=== PATIENT | female | born 1995 | race Caucasian/White ===

== ENCOUNTER 2023-01-16 09:55 | Emergency (ER) | payer BC ==
[~2023-01-16] VITALS: Ht 162.6 cm; Wt 104.3 kg
[2023-01-16 10:00] VITALS: BP 143/82
--- NOTE | 2023-01-16 10:10 | NUR ---
STATES DEVELOPED RASH AFTER EATING CANDY LAST NIGHT. C/O ITCHING AND RASH ONSET AFTER EATING THE CANDY. C/O THROAT DISCOMFORT WELL. PRESENTS TO ED W/ AIRWAY PATENT, RESP UNLAB AND EVEN. NO ADVENTITIOUS LUNG SOUNDS NOTED. NO RESP DISTRESS. UNABLE TO VISUALIZE RASH AT THIS TIME. PREP FOR ERMD EVAL. COMFORT MEASURES AND SUPPORTIVE CARE INITIATED,
[2023-01-16] MEDS ORDERED: HYDR28CR38 TP (10:25)
[2023-01-16] MEDS ORDERED: LORA10TA60 PO (10:25)
[2023-01-16] MEDS ORDERED: PRED50TA2 PO (10:25)
--- NOTE | 2023-01-16 10:45 | NUR ---
SEEN BY SYDNIE HALE. VERBAL ACI GIVEN BY LIS. PT AGREES W/ D/C PLAN. REMAINS ASYMPTOMATIC AT THIS TIME. VERB UNDERSTANDING OF ACI. AMBULATES TO LOBBY W/O LIMITATION.
[2023-01-16 10:46] VITALS: BP 134/77
== END 2023-01-16 10:46 | disposition home or self-care (01) ==
LOC: MED 09:55
DX: R21 Rash and other nonspecific skin eruption (principal); Z79.899 Other long term (current) drug therapy
CPT/HCPCS: 99281